=== PATIENT | female | born 1955 | race Caucasian/White ===

== ENCOUNTER 2019-09-01 06:42 | Day surgery (SDC) | payer MEDICARE, OTHER ==
[~2019-09-01 06:42] MED LIST: Dextrose 5%-0.45% NaCl 1,000 ML IV SCH; Midazolam 1 MG/ML 2 ML SDV ONE; fentaNYL 100 MCG/2 ML SDV ONE
[2019-09-01] MEDS ORDERED: Midazolam 1 MG/ML 2 ML SDV IV ONE ×3 (06:43→07:53)
[2019-09-01] MEDS ORDERED: fentaNYL 100 MCG/2 ML SDV IV ONE ×3 (06:43→07:52)
--- NOTE | 2019-09-01 11:13 | OR ---
DATE: 09/01/2019 PROCEDURES: Esophagogastroduodenoscopy and multiple pinch biopsies. INSTRUMENT USED: [id number]-HQ190 Olympus video panendoscope. PREMEDICATIONS: No oral or topical anesthesia used. Fentanyl 100 mcg intravenous, Versed 2 mg intravenous, nasal O2 cannula. Procedure was done under pulse oximetry, BP recording, and youth nutritional monitor. INDICATION: The patient with unexplained iron deficiency anemia. Esophagogastroduodenoscopy is performed for detection of any active erosive lesions, Mtz's esophagus and/or malignancy also under consideration, H pylori status to be determined, small bowel biopsies to be obtained for celiac disease if indicated, endoscopic hemostasis therapy if needed. PROCEDURE IN DETAIL: The scope was passed with ease. Adequate visualization of the esophagus was made from proximal to distal areas. No upper esophageal lesions identified. No distal esophageal stricture. No uphill or downhill esophageal varices. No Roopa-Hart tear. No evidence of erosive esophagitis by Obion criteria. No esophageal polyp or tumor mass identified. Large hiatal hernia was noted. No proximal gastric varices noted. Gastric fundus examination by retroflexion showed no polypoid lesions. Scattered diminutive benign-appearing gastric body polyps were noted. No gastric ulcer, malignant mass, or vascular ectasia identified. Duodenal bulb showed no ulcer. Visualized second part of the duodenum was unremarkable. Multiple pinch biopsies, 4 in number, were taken from different areas of the second part of the duodenum and tissues were also obtained from the duodenal bulb at 9 and 12 o'clock positions and sent for any histopathologic evidence of celiac disease. Multiple pinch biopsies were taken from the gastric antrum and proximal body and sent for PyloriTek test for H pylori and histopathology. No bleeding was noted from any of the visualized areas at the completion of examination. Photographs were taken of the duodenal bulb, gastric antrum, fundus, and distal esophagus. IMPRESSION: 1. Large hiatal hernia. 2. Diminutive gastric polyps. The patient tolerated the procedure well. [facility] /[id number]
[2019-09-01 13:16] VITALS: BP 113/82; PULSE 72
== END 2019-09-01 10:09 | disposition home or self-care (01) ==
LOC: DL.ENDO 06:42
PROVIDERS: ATTEND Internal Medicine Gastroenterology
DX: K31.7 Polyp of stomach and duodenum (principal); K44.9 Diaphragmatic hernia without obstruction or gangrene; D50.9 Iron deficiency anemia, unspecified; M19.90 Unspecified osteoarthritis, unspecified site; E66.09 Other obesity due to excess calories; K57.30 Diverticulosis of large intestine without perforation or abscess without bleeding; K21.9 Gastro-esophageal reflux disease without esophagitis; E78.5 Hyperlipidemia, unspecified; I10 Essential (primary) hypertension; Z90.710 Acquired absence of both cervix and uterus; Z98.890 Other specified postprocedural states; Z98.1 Arthrodesis status; Z90.49 Acquired absence of other specified parts of digestive tract; Z88.1 Allergy status to other antibiotic agents; Z88.8 Allergy status to other drugs, medicaments and biological substances
CPT/HCPCS: 43239; 87077; J2250; J3010; J7042; 88305

== ENCOUNTER 2019-09-05 05:20 | Day surgery (SDC) | payer MEDICARE, OTHER ==
[2019-09-05] MEDS ORDERED: fentaNYL 100 MCG/2 ML SDV IV ONE ×5 (05:21→06:39)
[2019-09-05] MEDS ORDERED: Midazolam 1 MG/ML 2 ML SDV IV ONE ×7 (05:21→06:34)
[2019-09-05] MEDS ORDERED: Dextrose 5%-0.45% NaCl 1,000 ML IV SCH (05:50)
[2019-09-05] MEDS ORDERED: Midazolam 1 MG/ML 2 ML SDV ONE (06:09)
[2019-09-05] MEDS ORDERED: fentaNYL 100 MCG/2 ML SDV ONE (06:09)
[2019-09-05 09:09] VITALS: BP 121/76; PULSE 80
--- NOTE | 2019-09-05 13:36 | OR ---
DATE: 09/05/2019 PROCEDURE: Total colonoscopy. INSTRUMENT USED: [id number]-H190DL Olympus video colonoscope. PREMEDICATIONS: Fentanyl 150 mcg intravenous, Versed 4 mg intravenous, nasal O2 cannula. Procedure was done under pulse oximetry, BP recording, and manager cardiac cath. INDICATION: The patient with unexplained iron deficiency anemia. Colonoscopy examination is done for detection of any polypoid lesions and removal, endoscopic hemostasis therapy if needed. DESCRIPTION OF PROCEDURE: Initial rectal exam was unremarkable. Rigid anoscopy showed small internal hemorrhoids without bleeding from them. The colonoscope was passed with ease. Numerous scattered diverticula were noted, more so in the distal left colon along with deformity. The scope was passed with ease up to the ileocecal area. Photographs were taken of the normal-appearing cecum identified by landmarks of appendiceal orifice and double-bulged ileocecal folds. No bleeding was noted from any of the visualized areas at the commencement of the examination. The bowel preparation was found to be adequate, Kilgore scale 2 in all the regions, total score 6. No stricture. No vascular ectasia. No large isolated ulcerations seen. No evidence of diffuse inflammatory bowel disease in the form of friability, contact bleeding, or ulcerations. No polyp or tumor mass identified. Probing the proximal sides of folds and flexures using adequate distention and clearing up the stool material, withdrawal of the scope was made. Cecum to rectum time over 6 minutes. No bleeding was noted from any of the visualized areas at the completion of the examination. IMPRESSION: 1. Internal hemorrhoids. 2. Diverticulosis. The patient tolerated the procedure well. [facility] /[id number]
== END 2019-09-05 08:51 | disposition home or self-care (01) ==
LOC: DL.ENDO 05:20
PROVIDERS: ATTEND Internal Medicine Gastroenterology
DX: K64.8 Other hemorrhoids (principal); K57.30 Diverticulosis of large intestine without perforation or abscess without bleeding; D50.9 Iron deficiency anemia, unspecified; M19.90 Unspecified osteoarthritis, unspecified site; E66.09 Other obesity due to excess calories; K21.9 Gastro-esophageal reflux disease without esophagitis; E78.5 Hyperlipidemia, unspecified; I10 Essential (primary) hypertension; Z88.1 Allergy status to other antibiotic agents; Z88.5 Allergy status to narcotic agent; Z79.899 Other long term (current) drug therapy; Z90.49 Acquired absence of other specified parts of digestive tract; Z90.710 Acquired absence of both cervix and uterus; Z98.890 Other specified postprocedural states; Z68.32 Body mass index [BMI] 32.0-32.9, adult; Z98.1 Arthrodesis status
CPT/HCPCS: 45378; J2250; J3010; J7042; G0121

== ENCOUNTER 2023-02-13 05:35 | Day surgery (SDC) | payer MEDICARE ==
[~2023-02-13 05:35] MED LIST changes: -Midazolam 1 MG/ML 2 ML SDV ONE; -fentaNYL 100 MCG/2 ML SDV ONE
[2023-02-13] MEDS ORDERED: fentaNYL 100 MCG/2 ML SDV ONE (06:12)
[2023-02-13] MEDS ORDERED: Midazolam 1 MG/ML 2 ML SDV ONE (06:12)
[2023-02-13] MEDS ORDERED: Midazolam 1 MG/ML 2 ML SDV IV ONE ×7 (06:12→06:46)
[2023-02-13] MEDS ORDERED: fentaNYL 100 MCG/2 ML SDV IV ONE ×4 (06:12→06:52)
[2023-02-13 08:03] VITALS: BP 116/68; PULSE 70
== END 2023-02-13 08:40 | disposition home or self-care (01) ==
LOC: DL.ENDO 05:35
PROVIDERS: ATTEND Internal Medicine Gastroenterology
DX: K62.1 Rectal polyp (principal); R19.7 Diarrhea, unspecified; E66.09 Other obesity due to excess calories; K21.9 Gastro-esophageal reflux disease without esophagitis; K44.9 Diaphragmatic hernia without obstruction or gangrene; I10 Essential (primary) hypertension; E78.5 Hyperlipidemia, unspecified; K57.30 Diverticulosis of large intestine without perforation or abscess without bleeding; Z90.710 Acquired absence of both cervix and uterus; Z88.1 Allergy status to other antibiotic agents; Z88.6 Allergy status to analgesic agent; Z88.8 Allergy status to other drugs, medicaments and biological substances; Z68.30 Body mass index [BMI] 30.0-30.9, adult; Z79.899 Other long term (current) drug therapy
CPT/HCPCS: 45385; 88305; J2250; J3010; J7042